=== PATIENT | female | born 1960 | race Caucasian/White ===

== ENCOUNTER 2025-02-18 22:03 | Inpatient (IN) | payer MEDICARE, MEDICAID ==
[~2025-02-18] VITALS: Ht 149.9 cm; Wt 68.5 kg
[2025-02-18 22:07] VITALS: O2SAT 98
[2025-02-18] MEDS: SODIUM CHLORIDE 0.9% (SEPSIS BOLUS) IV ONE (22:40)
[2025-02-18] MEDS: CEFTRIAXONE 1GM/50ML 50 ML IV ONE (22:44)
[2025-02-18] MEDS: ACETAMINOPHEN 500MG TABLET PO ONE (22:45)
[2025-02-18] MEDS: KETOROLAC 15MG/ML VIAL IV ONE (22:45)
[2025-02-18 22:58] LABS: BASOPHILS % 0.4 % (0.0-2.0); EOSINOPHILS % 0.2 % (0.0-5.0); HEMATOCRIT. 38.7 % (36.0-48.0); HEMOGLOBIN. 13.0 g/dL (12.0-16.0); LYMPHOCYTES % 12.4 % (20.0-50.0); MEAN PLATELET VOLUME 8.3 fl (7.4-10.4); MONOCYTES % 10.3 % (2.0-8.0); NEUTROPHILS % 76.7 % (40.0-76.0); PLATELET 196 x1000/uL (130-400); RED BLOOD CELL COUNT 4.12 mill/uL (4.2-5.4); RED CELL DISTRIBUTION WIDTH 13.4 % (11.6-14.6)
[2025-02-18 23:08] LABS: INR 1.0
[2025-02-18 23:13] LABS: CREATININE 0.8 mg/dL (0.6-1.0); UREA NITROGEN BLOOD 10 mg/dL (9-23)
[2025-02-18 23:14] LABS: ASPARTATE AMINOTRANSFERASE 37 IU/L (<34)
[2025-02-18 23:15] LABS: BILIRUBIN DIRECT 0.3 mg/dL (<=3.0); BILIRUBIN TOTAL 1.0 mg/dL (0.1-1.0); PROTEIN TOTAL 6.9 g/dL (6.0-8.3); TROPONIN I HIGH SENSITIVITY 4 ng/L (3.0-34)
[2025-02-19 01:01] LABS: CLARITY URINE TURBID (CLEAR); COLOR URINE YELLOW (YELLOW); GLUCOSE URINE 3+ (NEGATIVE); KETONES URINE TRACE (NEGATIVE); LEUKOCYTE ESTERASE URINE 2+ (NEGATIVE); NITRITE URINE POSITIVE (NEGATIVE); OCCULT BLOOD URINE 1+ (NEGATIVE); PH URINE 5.5 (4.5-8.0); PROTEIN URINE 1+ (NEGATIVE); SPECIFIC GRAVITY URINE 1.016 (1.005-1.030); UROBILINOGEN URINE 0.2 E.U./dL (0.2-1.0)
[2025-02-19 01:12] LABS: BACTERIA URINE 3+; SQUAMOUS EPITHELIAL CELL URINE FEW /lpf (RARE/1+)
[2025-02-19] MEDS ORDERED: ACETAMINOPHEN 325MG TABLET PO PRN (01:30)
[2025-02-19] MEDS ORDERED: LORAZEPAM 0.5MG TABLET PO PRN (01:30)
[2025-02-19] MEDS ORDERED: CLONIDINE 0.1MG TABLET PO PRN (01:30)
[2025-02-19] MEDS ORDERED: MORPHINE SULFATE 4 MG/ML INJ (FOR IV/IM USE) IV PRN (01:30)
[2025-02-19] MEDS ORDERED: IPRATROPIUM/ALBUTEROL 0.5-3(2.5)MG/3ML NEB HHN PRN (01:30)
[2025-02-19] MEDS ORDERED: DOCUSATE SODIUM 100MG CAPSULE PO PRN (01:30)
[2025-02-19] MEDS ORDERED: DEXTROSE 50% WATER 50ML SYRINGE IV PRN (01:30)
[2025-02-19] MEDS ORDERED: HYDROCODONE/ACETAMINOPHEN 5/325MG TABLET PO PRN (01:30)
[2025-02-19] MEDS ORDERED: DIPHENHYDRAMINE 50MG/ML VIAL IV PRN (01:30)
[2025-02-19] MEDS ORDERED: ONDANSETRON HCL 4MG/2ML INJ IV PRN (01:30)
[2025-02-19] MEDS ORDERED: GUAIFENESIN 200MG/10ML SUGAR FREE UDC PO PRN (01:30)
[2025-02-19 02:24] LABS: BG BASE EXCESS -0.7 mmol/L (-2.0-3.0); BG CARBOXYHEMOGLOBIN 0.3 % (0.5-1.5); BG DEOXYHEMOGLOBIN 4.3 % (0.0-5.0); BG FRACTION INSPIRED OXYGEN 21; BG HCO3 ACT 23.0 mmol/L (21.0-28.0); BG METHEMOGLOBIN 0.0 % (0.5-1.5); BG OXYGEN SATURATION 95.7 % (94.0-98.0); BG OXYHEMOGLOBIN 95.4 % (94.0-98.0); BG PCO2 35.1 mmHg (32.0-45.0); BG PH 7.435 (7.350-7.450); BG PO2 77.6 mmHg (83.0-108.0); BG SAMPLE SITE RIGHT RADIAL; BG TOTAL HEMOGLOBIN 13.2 g/dL (12.0-16.0); BG VENT MODE ROOM AIR
[2025-02-19 03:10] LABS: PHOSPHORUS 3.1 mg/dL (2.5-4.9)
[2025-02-19 03:12] LABS: VITAMIN B12 SERUM 510 pg/mL (211-911)
[2025-02-19 05:29] LABS: CREATININE 0.8 mg/dL (0.6-1.0); UREA NITROGEN BLOOD 10 mg/dL (9-23)
[2025-02-19] MEDS ORDERED: CALCIUM GLUCONATE 1GM PREMIX 50 ML IV NR (05:45)
[2025-02-19] MEDS: BLOOD SUGAR DIAGNOSTIC STRIP TEST SCH (07:41)
[2025-02-19] MEDS: SODIUM CHLORIDE 0.9% 1,000 ML IV SCH (07:42)
[2025-02-19] MEDS ORDERED: INSULIN LISPRO 100 UNITS/ML SUBCUT SCH (08:20)
[2025-02-19 08:21] LABS: INFLUENZA TYPE A Presumptive Negative (Pres. Neg.)
[2025-02-19 08:22] LABS: INFLUENZA TYPE B Presumptive Negative (Pres. Neg.); RESPIRATORY SYNCYTIAL VIRUS Not Detected (Not Detectd)
[2025-02-19] MEDS: MULTIVITAMINS,THER W-MINERALS TABLET PO SCH (09:00)
[2025-02-19] MEDS: FOLIC ACID 1MG TABLET PO SCH (09:00)
[2025-02-19] MEDS: PANTOPRAZOLE SODIUM 40 MG/VIAL IV SCH (09:00)
[2025-02-19 09:56] VITALS: BP 113/57; PULSE 102; RESP 20; TEMP 36.8072
[2025-02-19 12:00] VITALS: BP 104/72; PULSE 122; RESP 20; TEMP 36.5; O2SAT 99
[2025-02-19 12:02] VITALS: BP 120/82; PULSE 102; RESP 20; TEMP 36.9; O2SAT 95
[2025-02-19] MEDS: INSULIN LISPRO 100 UNITS/ML SUBCUT SCH (13:10)
[2025-02-19 16:00] VITALS: BP 117/69; PULSE 102; RESP 20; TEMP 36.5; O2SAT 98
[2025-02-19 20:00] VITALS: BP 106/55; PULSE 109; RESP 18; TEMP 37.9; O2SAT 97
[2025-02-19] MEDS: ACETAMINOPHEN 325MG TABLET PO PRN (21:51)
[2025-02-19] MEDS ORDERED: CEFTRIAXONE 1GM/50ML 50 ML IV SCH (22:00)
[2025-02-19] MEDS: CEFTRIAXONE 1GM/50ML 50 ML IV SCH (23:14)
[2025-02-20] VITALS: BP 101/66; PULSE 89; RESP 20; TEMP 37.7; O2SAT 97
[2025-02-20 04:00] VITALS: BP 109/77; PULSE 80; RESP 20; TEMP 37.1; O2SAT 97
[2025-02-20 07:15] LABS: BASOPHILS % 0.3 % (0.0-2.0); EOSINOPHILS % 3.0 % (0.0-5.0); HEMATOCRIT. 35.5 % (36.0-48.0); HEMOGLOBIN. 12.0 g/dL (12.0-16.0); LYMPHOCYTES % 28.0 % (20.0-50.0); MEAN PLATELET VOLUME 9.2 fl (7.4-10.4); MONOCYTES % 13.7 % (2.0-8.0); NEUTROPHILS % 55.0 % (40.0-76.0); PLATELET 194 x1000/uL (130-400); RED BLOOD CELL COUNT 3.77 mill/uL (4.2-5.4); RED CELL DISTRIBUTION WIDTH 12.9 % (11.6-14.6)
[2025-02-20 07:37] LABS: TRIGLYCERIDE 174.0 mg/dL (0-150)
[2025-02-20 07:38] LABS: LDL CHOLESTEROL 97.0 mg/dL (5-100)
[2025-02-20 07:40] LABS: ASPARTATE AMINOTRANSFERASE 28 IU/L (<34)
[2025-02-20 07:41] LABS: BILIRUBIN DIRECT 0.2 mg/dL (<=3.0); BILIRUBIN TOTAL 0.7 mg/dL (0.1-1.0); PROTEIN TOTAL 5.9 g/dL (6.0-8.3); T4 FREE 1.13 ng/dL (0.89-1.76)
[2025-02-20 07:43] LABS: HEPATITIS C AB NON REACTIVE (Neg) (Negative)
[2025-02-20] MEDS ORDERED: NALOXONE HCL 0.4MG/ML VIAL IV PRN (11:30)
[2025-02-20 11:38] LABS: CREATININE 0.7 mg/dL (0.6-1.0)
[2025-02-20 11:39] LABS: UREA NITROGEN BLOOD 10 mg/dL (9-23)
[2025-02-20 12:00] VITALS: BP 105/65; PULSE 94; RESP 18; TEMP 36.3; O2SAT 100
[2025-02-20] MEDS: OLANZAPINE 10MG TABLET PO SCH (13:46)
[2025-02-20 16:00] VITALS: BP 114/65; PULSE 98; RESP 20; TEMP 36.3; O2SAT 99
[2025-02-20 20:19] VITALS: BP 101/53; PULSE 93; RESP 18; TEMP 36.4; O2SAT 97
[2025-02-20] MEDS: POTASSIUM CHLORIDE 20MEQ TABLET SR PO SCH (22:21)
[2025-02-20] MEDS: DULOXETINE HCL 30MG DR CAPSULE PO SCH (22:22)
[2025-02-20 23:37] VITALS: BP 112/58; PULSE 95; RESP 18; TEMP 36.9; O2SAT 96
[2025-02-21 04:22] VITALS: BP 118/75; PULSE 99; RESP 18; TEMP 36.6; O2SAT 97
[2025-02-21 08:00] VITALS: BP 116/69; PULSE 96; RESP 20; TEMP 36.1; O2SAT 99
[2025-02-21 09:20] LABS: CREATININE 0.7 mg/dL (0.6-1.0); UREA NITROGEN BLOOD 9 mg/dL (9-23)
[2025-02-21 09:22] LABS: PHOSPHORUS 3.4 mg/dL (2.5-4.9)
[2025-02-21 09:30] LABS: BASOPHILS % 0.5 % (0.0-2.0); EOSINOPHILS % 2.0 % (0.0-5.0); HEMATOCRIT. 36.2 % (36.0-48.0); HEMOGLOBIN. 12.1 g/dL (12.0-16.0); LYMPHOCYTES % 31.0 % (20.0-50.0); MEAN PLATELET VOLUME 8.9 fl (7.4-10.4); MONOCYTES % 13.4 % (2.0-8.0); NEUTROPHILS % 53.1 % (40.0-76.0); PLATELET 231 x1000/uL (130-400); RED BLOOD CELL COUNT 3.82 mill/uL (4.2-5.4); RED CELL DISTRIBUTION WIDTH 13.2 % (11.6-14.6)
[2025-02-21 12:00] VITALS: BP 110/56; PULSE 61; RESP 18; TEMP 36.3; O2SAT 97
[2025-02-21 16:00] VITALS: BP 110/51; PULSE 84; RESP 20; TEMP 36.3; O2SAT 98
[2025-02-21 20:00] VITALS: BP 116/65; PULSE 90; RESP 19; TEMP 36.6; O2SAT 97
[2025-02-22] VITALS: BP 100/67; PULSE 88; RESP 18; TEMP 36.6; O2SAT 97
[2025-02-22 04:00] VITALS: BP 113/69; PULSE 91; RESP 18; TEMP 36.3; O2SAT 98
[2025-02-22 08:00] VITALS: BP 119/77; PULSE 88; RESP 18; TEMP 36.2; O2SAT 97
[2025-02-22 08:04] LABS: BASOPHILS % 0.6 % (0.0-2.0); EOSINOPHILS % 3.0 % (0.0-5.0); HEMATOCRIT. 39.1 % (36.0-48.0); HEMOGLOBIN. 13.1 g/dL (12.0-16.0); LYMPHOCYTES % 34.4 % (20.0-50.0); MEAN PLATELET VOLUME 8.7 fl (7.4-10.4); MONOCYTES % 11.3 % (2.0-8.0); NEUTROPHILS % 50.7 % (40.0-76.0); PLATELET 289 x1000/uL (130-400); RED BLOOD CELL COUNT 4.13 mill/uL (4.2-5.4); RED CELL DISTRIBUTION WIDTH 13.5 % (11.6-14.6)
[2025-02-22 08:30] LABS: CREATININE 0.7 mg/dL (0.6-1.0); UREA NITROGEN BLOOD 7 mg/dL (9-23)
[2025-02-22 08:32] LABS: PHOSPHORUS 3.7 mg/dL (2.5-4.9)
[2025-02-22] MEDS ORDERED: BLOO-340 HHN (09:22)
[2025-02-22] MEDS ORDERED: METF-1149 MT (09:22)
[2025-02-22] MEDS ORDERED: OLAN10TA72 PO (09:22)
[2025-02-22] MEDS ORDERED: SULF1TAB48 MT (09:22)
[2025-02-22 11:00] VITALS: BP 110/69; PULSE 90; RESP 18; TEMP 98
== END 2025-02-22 14:43 | disposition home or self-care (01) | DRG 872 ==
LOC: ER 22:03 → 7WST 02-19 00:47 → EDBEDREQDT 02-19 00:50 → EDBEDREQ 02-19 00:50 → EDBEDREQTM 02-19 00:50 → ENRESERV 02-19 07:20
PROVIDERS: ADMIT Student in an Organized Health Care Education/Training Program; ATTEND Student in an Organized Health Care Education/Training Program
PROC: GZ56ZZZ Individual Psychotherapy, Supportive (ICD-10-PCS; principal; 2025-02-21)
DX: A41.51 Sepsis due to Escherichia coli [E. coli] (principal); N10 Acute pyelonephritis; K92.1 Melena; K21.9 Gastro-esophageal reflux disease without esophagitis; E87.6 Hypokalemia; E83.51 Hypocalcemia; F41.9 Anxiety disorder, unspecified; F32.9 Major depressive disorder, single episode, unspecified; F20.9 Schizophrenia, unspecified; E11.9 Type 2 diabetes mellitus without complications; Z79.899 Other long term (current) drug therapy; Z79.84 Long term (current) use of oral hypoglycemic drugs; Z79.4 Long term (current) use of insulin; Z91.51 Personal history of suicidal behavior
CPT/HCPCS: 36415; 36600; 71045; 74176; 80048; 80061; 80076; 81003; 82010; 82040; 82270; 82375; 82607; 82805; 82962; 83036; 83605; 83735; 83880; 84100; 84145; 84439; 84443; 84481; 84484; 85025; 85379; 86705; 87077; 87186; 87340; 87420; 87804; 93005; 93970; 99291; J0696; J1815; J1885; J2470; J7030